=== PATIENT | female | born 1990 | race Hispanic/Latino ===

== ENCOUNTER 2017-04-16 00:21 | Observation (INO) | payer MEDICAID ==
[~2017-04-16] VITALS: Ht 162.6 cm; Wt 94.3 kg
[2017-04-16] MEDS: LACTATED RINGERS 1000ML 1,000 ML IV SCH ×2 (01:40→06:48)
[2017-04-16 02:12] LABS: BILIRUBIN,URINE Negative (NEGATIVE); COLOR,URINE Yellow (YELLOW); GLUCOSE, URINE (UA) Negative (NEGATIVE); KETONES,URINE 15 mg/dL (NEGATIVE); LEUKOCYTE ESTERASE ,URINE Trace (NEGATIVE); NITRATE,URINE Negative (NEGATIVE); OCCULT BLOOD,URINE Negative (NEGATIVE); PH,URINE 7.5 (5.0-8.0); PROTEIN,URINE Trace (NEGATIVE)
[2017-04-16 02:14] LABS: APPEARANCE,URINE CLEAR (CLEAR)
[2017-04-16 02:19] LABS: AMPHET/METH SCREEN,URINE NEGATIVE (NEGATIVE); BARBITURATE SCREEN, URINE NEGATIVE (NEGATIVE); BENZODIAZEPINES SCREEN,URINE NEGATIVE (NEGATIVE); CANNABINOID SCREEN,URINE NEGATIVE (NEGATIVE); COCAINE SCREEN,URINE NEGATIVE (NEGATIVE); OPIATE SCREEN,URINE NEGATIVE (NEGATIVE); PHENCYCLIDINE SCREEN,URINE NEGATIVE (NEGATIVE)
[2017-04-16 02:25] LABS: BACTERIA,URINE Few /HPF (None Seen); MUCUS,URINE Few LPF (None Seen)
[2017-04-16] MEDS ORDERED: MEPERIDINE-PF 25 MG/ML SYG IVP ONE (03:15)
[2017-04-16] MEDS ORDERED: PROMETHAZINE HCL 25 MG/ML 1ML AMPULE IM SCH (03:15)
[2017-04-16] MEDS ORDERED: CEFTRIAXONE 1GM/D5W 50ML 50 ML IV SCH (07:15)
[2017-04-16] MEDS ORDERED: CEFTRIAXONE SODIUM 1 GM IVP SCH (07:15)
== END 2017-04-16 08:16 | disposition home or self-care (01) ==
LOC: EDH 00:21 → LDH 00:56
PROVIDERS: ADMIT Obstetrics & Gynecology; ATTEND Obstetrics & Gynecology
DX: O26.893 Other specified pregnancy related conditions, third trimester (principal); M54.9 Dorsalgia, unspecified; R10.30 Lower abdominal pain, unspecified; O62.9 Abnormality of forces of labor, unspecified; Z3A.37 37 weeks gestation of pregnancy
CPT/HCPCS: 80305; 81001; 87088; 96361 ×2; 96372; 96374; 96375; 99285; A4218; G0378 ×7; J0696; J2175; J2550; J7120 ×2; 96360

== ENCOUNTER 2017-04-29 18:55 | Inpatient (IN) | payer MEDICAID ==
[~2017-04-29] VITALS: Ht 162.6 cm; Wt 97.1 kg
[2017-04-29 20:04] LABS: APPEARANCE,URINE Cloudy (CLEAR); BILIRUBIN,URINE Small (NEGATIVE); COLOR,URINE Dark Yellow (YELLOW); GLUCOSE, URINE (UA) Negative (NEGATIVE); KETONES,URINE Trace mg/dL (NEGATIVE); LEUKOCYTE ESTERASE ,URINE Trace (NEGATIVE); NITRATE,URINE Negative (NEGATIVE); OCCULT BLOOD,URINE Negative (NEGATIVE); PROTEIN,URINE POS 1+ (NEGATIVE)
[2017-04-29 20:18] LABS: SQUAMOUS EPITHELIAL CELL,UR 50-100 /LPF (0-2)
[2017-04-29 20:19] LABS: BACTERIA,URINE Few /HPF (None Seen); MUCUS,URINE Few LPF (None Seen); RBC,URINE None Seen /HPF (0-1)
[2017-04-29] MEDS ORDERED: LACTATED RINGERS 1000ML 1,000 ML IV PRN (20:32)
[2017-04-29 20:34] LABS: AMPHET/METH SCREEN,URINE NEGATIVE (NEGATIVE); BARBITURATE SCREEN, URINE NEGATIVE (NEGATIVE); BENZODIAZEPINES SCREEN,URINE NEGATIVE (NEGATIVE); CANNABINOID SCREEN,URINE NEGATIVE (NEGATIVE); COCAINE SCREEN,URINE NEGATIVE (NEGATIVE); OPIATE SCREEN,URINE NEGATIVE (NEGATIVE); PHENCYCLIDINE SCREEN,URINE NEGATIVE (NEGATIVE)
[2017-04-29 22:02] LABS: MEAN CORPUSCULAR HEMOGLOBIN 26.7 pg (27.0-33.0); MEAN CORPUSCULAR HGB CONC 34.1 g/dL (32.0-36.0); MEAN CORPUSCULAR VOLUME 78.3 fL (79-99); PLATELET COUNT (AUTO) 250 K/uL (130-400); RED CELL DISTRIBUTION WIDTH 14.4 % (11.0-15.5); WHITE BLOOD COUNT (AUTO) 7.8 K/uL (4.8-10.8)
[2017-04-30] MEDS ORDERED: LACTATED RINGERS 1000ML 1,000 ML IV ONE ×3 (03:11→15:18)
[2017-04-30] MEDS ORDERED: OXYTOCIN 10 USP UNITS/ML ONE ×2 (03:12→15:19)
[2017-04-30] MEDS ORDERED: BUTORPHANOL TARTRATE 2 MG/ML IVP ONE (03:45)
[2017-04-30] MEDS ORDERED: OXYTOCIN 10 USP UNITS/ML 20 UNIT in LACTATED RINGERS 1000ML 1,000 ML IV SCH (04:00)
[2017-04-30] MEDS ORDERED: PROMETHAZINE HCL 25 MG/ML 1ML AMPULE IM ONE (09:02)
[2017-04-30] MEDS ORDERED: MEPERIDINE-PF 50 MG/ML SYG ONE (09:03)
[2017-04-30] MEDS ORDERED: MEPERIDINE-PF 50 MG/ML SYG IM ONE (09:15)
[2017-04-30] MEDS ORDERED: PROMETHAZINE HCL 25 MG/ML 1ML AMPULE IM SCH (09:15)
[2017-04-30] MEDS ORDERED: MEPERIDINE-PF 50 MG/ML SYG IM SCH (09:30)
[2017-04-30] MEDS ORDERED: NALOXONE HCL 0.4 MG/1 ML ML IV PRN (10:30)
[2017-04-30] MEDS ORDERED: LACTATED RINGERS 500 ML 500 ML IV PRN (10:30)
[2017-04-30] MEDS ORDERED: EPHEDRINE SULFATE 50 MG/ML AMPULE IVP PRN (10:30)
[2017-04-30] MEDS ORDERED: LIDOCAINE HCL 1% 20 ML VIAL ONE (15:19)
[2017-04-30 17:55] VITALS: BP 135/91
[2017-04-30] MEDS ORDERED: BENZOCAINE/LANOLIN/ALOE VERA 60 ML AEROSOL TP PRN (18:15)
[2017-04-30] MEDS ORDERED: ACETAMINOPHEN 325 MG TAB PO PRN (18:15)
[2017-04-30] MEDS ORDERED: LANOLIN 30GM OINTMENT TP PRN (18:15)
[2017-04-30] MEDS ORDERED: MEASLES/MUMPS/RUBELLA VACCINE, LIVE 0.5 ML/VIAL SQ PRN (18:15)
[2017-04-30] MEDS ORDERED: WITCH HAZEL 1 PAD TP PRN (18:15)
[2017-04-30] MEDS ORDERED: DIPH,PERTUSS(ACELL),TET VAC/PF 0.5 ML VIAL IM PRN (18:15)
[2017-04-30] MEDS: IBUPROFEN 800 MG TAB PO PRN (18:51)
[2017-04-30 19:32] VITALS: BP 123/76
[2017-04-30] MEDS: DOCUSATE SODIUM 100 MG CAP PO SCH (21:33)
[2017-04-30 23:11] VITALS: BP 116/75
[2017-05-01] MEDS: IBUPROFEN 800 MG TAB PO PRN ×2 (02:58→11:50)
[2017-05-01 03:43] VITALS: BP 128/83
[2017-05-01 05:27] LABS: HEMATOCRIT 29.9 % (36-48); MEAN CORPUSCULAR HEMOGLOBIN 26.3 pg (27.0-33.0); MEAN CORPUSCULAR HGB CONC 33.4 g/dL (32.0-36.0); MEAN CORPUSCULAR VOLUME 78.7 fL (79-99); PLATELET COUNT (AUTO) 226 K/uL (130-400); RED CELL DISTRIBUTION WIDTH 14.2 % (11.0-15.5)
[2017-05-01 07:23] VITALS: BP 120/72
[2017-05-01 08:36] LABS: HEPATITIS Bs ANTIGEN SCREEN P Negative (Negative)
[2017-05-01] MEDS: DOCUSATE SODIUM 100 MG CAP PO SCH (09:26)
[2017-05-01 11:11] VITALS: BP 123/68
[2017-05-01 15:05] VITALS: BP 123/78
== END 2017-05-01 16:50 | disposition home or self-care (01) | DRG 560 ==
LOC: LDH 18:55 → WSH 04-30 17:52
PROVIDERS: ADMIT Obstetrics & Gynecology; ATTEND Obstetrics & Gynecology
PROC: 0KQM0ZZ Repair Perineum Muscle, Open Approach (ICD-10-PCS; principal; 2017-04-30)
PROC: 10E0XZZ Delivery of Products of Conception, External Approach (ICD-10-PCS; 2017-04-30)
PROC: 10907ZC Drainage of Amniotic Fluid, Therapeutic from Products of Conception, Via Natural or Artificial Opening (ICD-10-PCS; 2017-04-30)
PROC: 3E033VJ Introduction of Other Hormone into Peripheral Vein, Percutaneous Approach (ICD-10-PCS; 2017-04-30)
PROC: 3E0234Z Introduction of Serum, Toxoid and Vaccine into Muscle, Percutaneous Approach (ICD-10-PCS; 2017-04-30)
PROC: 3E0134Z Introduction of Serum, Toxoid and Vaccine into Subcutaneous Tissue, Percutaneous Approach (ICD-10-PCS; 2017-04-30)
PROC: 3E0R3BZ Introduction of Anesthetic Agent into Spinal Canal, Percutaneous Approach (ICD-10-PCS; 2017-04-30)
PROC: 00HU33Z Insertion of Infusion Device into Spinal Canal, Percutaneous Approach (ICD-10-PCS; 2017-04-30)
DX: O69.1XX0 Labor and delivery complicated by cord around neck, with compression, not applicable or unspecified (principal); O70.1 Second degree perineal laceration during delivery; Z37.0 Single live birth; Z3A.39 39 weeks gestation of pregnancy; Z23 Encounter for immunization
CPT/HCPCS: 36415; 80305; 81001; 85027; 86592; 86850; 86900; 86901; 87340; A4314; A4606; J2175; J2550; J2590; J7120

== ENCOUNTER 2018-09-11 05:24 | Emergency (ER) | payer MEDICAID ==
[2018-09-11] MEDS ORDERED: ACETAMINOPHEN 325 MG TAB ONE (05:46)
== END 2018-09-11 07:22 | disposition home or self-care (01) ==
LOC: EDH 05:24
DX: S92.301A Fracture of unspecified metatarsal bone(s), right foot, initial encounter for closed fracture (principal); Y04.0XXA Assault by unarmed brawl or fight, initial encounter; Y93.89 Activity, other specified; Y92.89 Other specified places as the place of occurrence of the external cause; Y99.8 Other external cause status
CPT/HCPCS: 29515; 73630

== ENCOUNTER 2019-03-22 15:23 | Emergency (ER) | payer MEDICAID, OTHER | END 2019-03-22 19:43 | disposition home or self-care (01) | LOC: EDH 15:23 | DX: S40.011A Contusion of right shoulder, initial encounter (principal); W18.39XA Other fall on same level, initial encounter; Y93.89 Activity, other specified; Y92.488 Other paved roadways as the place of occurrence of the external cause; Y99.8 Other external cause status | CPT/HCPCS: 73030; 73060 ==

== ENCOUNTER 2020-10-17 12:12 | Observation (INO) | payer MEDICAID ==
[~2020-10-17] VITALS: Ht 160 cm; Wt 95.7 kg
[2020-10-17 13:11] LABS: AMPHET/METH SCREEN,URINE NEGATIVE (NEGATIVE); BARBITURATE SCREEN, URINE NEGATIVE (NEGATIVE); BENZODIAZEPINES SCREEN,URINE NEGATIVE (NEGATIVE); CANNABINOID SCREEN,URINE NEGATIVE (NEGATIVE); COCAINE SCREEN,URINE NEGATIVE (NEGATIVE); OPIATE SCREEN,URINE NEGATIVE (NEGATIVE); PHENCYCLIDINE SCREEN,URINE NEGATIVE (NEGATIVE)
[2020-10-17 13:36] LABS: APPEARANCE,URINE Cloudy (CLEAR); BILIRUBIN,URINE Negative (NEGATIVE); COLOR,URINE Yellow (YELLOW); GLUCOSE, URINE (UA) Negative (NEGATIVE); KETONES,URINE Negative (NEGATIVE); LEUKOCYTE ESTERASE ,URINE Moderate (NEGATIVE); NITRATE,URINE Negative (NEGATIVE); OCCULT BLOOD,URINE Negative (NEGATIVE); PH,URINE 6.5 (5.0-8.0); PROTEIN,URINE Negative (NEGATIVE)
[2020-10-17 13:46] LABS: RBC,URINE 0-1 /HPF (0-1)
[2020-10-17 13:47] LABS: BACTERIA,URINE Few /HPF (None Seen); MUCUS,URINE Few LPF (None Seen); SQUAMOUS EPITHELIAL CELL,UR Moderate /HPF (0-2); WBC,URINE >100 /HPF (0-1)
== END 2020-10-17 14:20 | disposition home or self-care (01) ==
LOC: LDH 12:12
PROVIDERS: ADMIT Obstetrics & Gynecology; ATTEND Obstetrics & Gynecology
DX: O99.323 Drug use complicating pregnancy, third trimester (principal); F14.10 Cocaine abuse, uncomplicated; Z3A.34 34 weeks gestation of pregnancy; Z79.899 Other long term (current) drug therapy
CPT/HCPCS: 59025; 80305; 81001; 87088; G0378 ×2

== ENCOUNTER 2020-11-22 21:53 | Inpatient (IN) | payer MEDICAID ==
[~2020-11-22] VITALS: Ht 160 cm; Wt 98.0 kg
[2020-11-22] MEDS ORDERED: LACTATED RINGERS 1000ML 1,000 ML IV PRN (22:30)
[2020-11-22 22:38] LABS: BILIRUBIN,URINE Negative (NEGATIVE); COLOR,URINE Yellow (YELLOW); GLUCOSE, URINE (UA) Negative (NEGATIVE); KETONES,URINE Negative (NEGATIVE); LEUKOCYTE ESTERASE ,URINE Moderate (NEGATIVE); NITRATE,URINE Negative (NEGATIVE); OCCULT BLOOD,URINE Moderate (NEGATIVE); PH,URINE 6.5 (5.0-8.0); PROTEIN,URINE Trace mg/dL (NEGATIVE)
[2020-11-22 22:45] LABS: APPEARANCE,URINE SLIGHTLY CLOUDY (CLEAR)
[2020-11-22 22:48] LABS: AMPHET/METH SCREEN,URINE NEGATIVE (NEGATIVE); BARBITURATE SCREEN, URINE NEGATIVE (NEGATIVE); BENZODIAZEPINES SCREEN,URINE NEGATIVE (NEGATIVE); CANNABINOID SCREEN,URINE NEGATIVE (NEGATIVE); COCAINE SCREEN,URINE NEGATIVE (NEGATIVE); OPIATE SCREEN,URINE NEGATIVE (NEGATIVE); PHENCYCLIDINE SCREEN,URINE NEGATIVE (NEGATIVE)
[2020-11-22 22:51] VITALS: BP 140/100
[2020-11-22 22:51] LABS: BACTERIA,URINE Few /HPF (None Seen); MUCUS,URINE Few LPF (None Seen)
[2020-11-22 22:55] LABS: MEAN CORPUSCULAR HEMOGLOBIN 26.1 pg (27.0-33.0); MEAN CORPUSCULAR HGB CONC 32.9 g/dL (32.0-36.0); MEAN CORPUSCULAR VOLUME 79.3 fL (79-99); RED BLOOD CELL COUNT(AUTO) 4.29 MIL/uL (4.00-5.50); RED CELL DISTRIBUTION WIDTH 14.9 % (11.0-15.5); WHITE BLOOD COUNT (AUTO) 13.4 K/uL (4.8-10.8)
[2020-11-22] MEDS ORDERED: LACTATED RINGERS 500 ML 500 ML IV PRN (23:00)
[2020-11-22] MEDS ORDERED: EPHEDRINE SULFATE 50 MG/ML AMPULE IVP PRN (23:00)
[2020-11-22] MEDS ORDERED: ROPIVACAINE 0.2% 100ML VIAL 100 ML EP PRN (23:00)
[2020-11-22] MEDS ORDERED: NALOXONE HCL 0.4 MG/1 ML ML IV PRN (23:00)
[2020-11-22 23:01] LABS: CREATININE 0.8 mg/dL (0.5-1.5)
[2020-11-22 23:05] LABS: ALBUMIN 2.4 g/dL (3.5-5.0); BILIRUBIN,TOTAL 0.2 mg/dL (0.2-1.0); TOTAL PROTEIN, SERUM 7.1 g/dL (6.0-8.3); URIC ACID 4.8 mg/dL (2.6-7.2)
[2020-11-22] MEDS ORDERED: AMPICILLIN 2GM+NS 100ML 100 ML IV ONE (23:05)
[2020-11-22 23:13] LABS: INR 0.88 (0.85-1.15); PROTHROMBIN TIME 9.7 SEC (9.6-11.6)
[2020-11-22 23:14] LABS: PARTIAL THROMBOPLASTIN TIME 26.9 SEC (26.3-35.5)
[2020-11-22] MEDS ORDERED: AMPICILLIN 2GM+NS 100ML 100 ML IV SCH (23:30)
[2020-11-23] MEDS ORDERED: PHENYLEPHRINE HCL 10 MG/ML 1ML VIAL IV ONE (01:15)
[2020-11-23] MEDS ORDERED: ONDANSETRON 4MG INJ ONE (01:21)
[2020-11-23 01:50] LABS: AMPHET/METH SCREEN,URINE NEGATIVE (NEGATIVE); BARBITURATE SCREEN, URINE NEGATIVE (NEGATIVE); BENZODIAZEPINES SCREEN,URINE NEGATIVE (NEGATIVE); CANNABINOID SCREEN,URINE NEGATIVE (NEGATIVE); COCAINE SCREEN,URINE NEGATIVE (NEGATIVE); OPIATE SCREEN,URINE NEGATIVE (NEGATIVE); PHENCYCLIDINE SCREEN,URINE NEGATIVE (NEGATIVE)
[2020-11-23] MEDS ORDERED: AMPICILLIN 1GM+NS 50ML 50 ML IV SCH (03:30)
[2020-11-23] MEDS ORDERED: OXYTOCIN-LR 20 UNITS/1000 ML 1,000 ML IV SCH ×2 (06:00→12:00)
[2020-11-23] MEDS ORDERED: MISOPROSTOL 200 MCG TABLET ONE (07:17)
[2020-11-23] MEDS ORDERED: MEASLES/MUMPS/RUBELLA VACCINE, LIVE 0.5 ML/VIAL SQ PRN (12:00)
[2020-11-23] MEDS ORDERED: LANOLIN 30GM OINTMENT TP PRN (12:00)
[2020-11-23] MEDS ORDERED: ACETAMINOPHEN 325 MG TAB PO PRN (12:00)
[2020-11-23] MEDS ORDERED: WITCH HAZEL 1 PAD TP PRN (12:00)
[2020-11-23] MEDS ORDERED: BENZOCAINE/LANOLIN/ALOE VERA 60 ML AEROSOL TP PRN (12:00)
[2020-11-23] MEDS ORDERED: DIPH,PERTUSS(ACELL),TET VAC/PF 0.5 ML VIAL IM PRN (12:00)
[2020-11-23] MEDS: IBUPROFEN 600 MG TABLET PO PRN ×2 (13:23→19:48)
[2020-11-23 13:35] VITALS: BP 133/76
[2020-11-23 16:21] VITALS: BP 101/63
[2020-11-23 19:13] VITALS: BP 112/66
[2020-11-23] MEDS: DOCUSATE SODIUM 100 MG CAP PO SCH (19:40)
[2020-11-23] MEDS: ACETAMINOPHEN WITH CODEINE 1 TAB TAB PO PRN (21:11)
[2020-11-23 23:09] VITALS: BP 111/66
[2020-11-24] MEDS: ACETAMINOPHEN WITH CODEINE 1 TAB TAB PO PRN ×2 (02:07→07:31)
[2020-11-24 03:02] VITALS: BP 86/53
[2020-11-24 06:12] LABS: HEPATITIS Bs ANTIGEN SCREEN P Negative (Negative)
[2020-11-24] MEDS: IBUPROFEN 600 MG TABLET PO PRN (06:22)
[2020-11-24 06:40] LABS: HEMATOCRIT 28.8 % (36-48); MEAN CORPUSCULAR HEMOGLOBIN 25.3 pg (27.0-33.0); MEAN CORPUSCULAR HGB CONC 31.6 g/dL (32.0-36.0); MEAN CORPUSCULAR VOLUME 80.2 fL (79-99); RED BLOOD CELL COUNT(AUTO) 3.59 MIL/uL (4.00-5.50); RED CELL DISTRIBUTION WIDTH 15.2 % (11.0-15.5); WHITE BLOOD COUNT (AUTO) 21.7 K/uL (4.8-10.8)
[2020-11-24 07:17] VITALS: BP 93/57
[2020-11-24] MEDS: DOCUSATE SODIUM 100 MG CAP PO SCH (08:46)
[2020-11-24] MEDS ORDERED: DOCU100C33 PO (12:54)
[2020-11-24] MEDS ORDERED: IBUP-2077 PO (12:55)
== END 2020-11-24 13:45 | disposition home or self-care (01) | DRG 560 ==
LOC: EDH 21:53 → LDH 21:59 → OBSVTOIN 21:59 → WSH 11-23 13:35
PROVIDERS: ADMIT Obstetrics & Gynecology; ATTEND Obstetrics & Gynecology
PROC: 10E0XZZ Delivery of Products of Conception, External Approach (ICD-10-PCS; principal; 2020-11-23)
PROC: 3E0R3BZ Introduction of Anesthetic Agent into Spinal Canal, Percutaneous Approach (ICD-10-PCS; 2020-11-23)
PROC: 00HU33Z Insertion of Infusion Device into Spinal Canal, Percutaneous Approach (ICD-10-PCS; 2020-11-23)
PROC: 3E0234Z Introduction of Serum, Toxoid and Vaccine into Muscle, Percutaneous Approach (ICD-10-PCS; 2020-11-23)
PROC: 3E0134Z Introduction of Serum, Toxoid and Vaccine into Subcutaneous Tissue, Percutaneous Approach (ICD-10-PCS; 2020-11-23)
DX: O80 Encounter for full-term uncomplicated delivery (principal); Z23 Encounter for immunization; Z37.0 Single live birth; Z3A.40 40 weeks gestation of pregnancy
CPT/HCPCS: 36415; 76805; 80053; 80305; 81001; 84550; 85027; 85384; 85610; 85730; 86592; 86850; 86900; 86901; 87088; 87340; A4314; G0378; J0290; J2370; J2405; J2590; J2795; J7120